=== PATIENT | female | born 1995 | race Caucasian/White ===

== ENCOUNTER 2023-11-23 19:22 | Emergency (ER) | payer OTHER ==
[~2023-11-23] VITALS: Ht 160 cm; Wt 54.4 kg
[2023-11-23 19:29] VITALS: BP_SYST 137; PULSE 77; RESP 18; TEMP 99.1; O2SAT 100
[2023-11-23 19:58] LABS: BILIRUBIN,URINE NEGATIVE (NEGATIVE); BLOOD, URINE NEGATIVE (NEGATIVE); CLARITY/URINE SL CLOUDY (CLEAR); COLOR,URINE YELLOW (YELLOW); GLUCOSE,URINE NEGATIVE (NEGATIVE); KETONES,URINE NEGATIVE (NEGATIVE); LEUKOCYTE ESTERASE ,URINE NEGATIVE (NEGATIVE); NITRITE, URINE NEGATIVE (NEGATIVE); PROTEIN URINE NEGATIVE (NEGATIVE); UROBILINOGEN,URINE 0.2 (0.2-1.0)
[2023-11-23 20:00] LABS: BASOPHILS # (AUTO) 0.1 K/uL (0.0-0.2); BASOPHILS % (AUTO) 0.8 % (0.0-2.0); EOSINOPHILS # (AUTO) 0.3 K/uL (0.0-0.4); EOSINOPHILS % (AUTO) 5.1 % (0.0-4.0); HEMATOCRIT 40.7 % (36-48); HEMOGLOBIN 14.1 g/dL (12.0-16.0); LYMPHOCYTES # (AUTO) 2.1 K/uL (1.0-5.5); LYMPHOCYTES % (AUTO) 30.2 % (20.5-51.5); MEAN CORPUSCULAR HEMOGLOBIN 32 pg (27-31); MEAN CORPUSCULAR HGB CONC 35 % (32-36); MEAN CORPUSCULAR VOLUME 94 fL (79.0-98.0); MONOCYTES # (AUTO) 0.6 K/uL (0.0-1.0); MONOCYTES % (AUTO) 9.2 % (1.7-9.3); NEUTROPHILS # (AUTO) 3.7 K/uL (1.8-7.7); NEUTROPHILS % (AUTO) 54.7 % (40.0-70.0); PLATELET COUNT (AUTO) 273 K/uL (130-430); RED BLOOD CELL COUNT(AUTO) 4.34 MIL/uL (4.2-6.2); RED CELL DISTRIBUTION WIDTH 12.5 % (9.0-15.0); WHITE BLOOD COUNT (AUTO) 6.8 K/uL (4.8-10.8)
[2023-11-23 20:11] LABS: BACTERIA,URINE FEW /HPF (None Seen); MUCUS,URINE None Seen /LPF (None Seen); RBC,URINE NONE SEEN /HPF (0-3); URINE AMORPHOUS PHOSPHATES 3+ /HPF (None Seen); WBC,URINE NONE SEEN /HPF (0-3)
[2023-11-23 20:12] LABS: CALCIUM 8.3 mg/dL (8.4-11.0); CREATININE 0.91 mg/dL (0.55-1.30); POTASSIUM 4.6 mmol/L (3.5-5.1)
[2023-11-23 20:15] VITALS: TEMP 98.4
[2023-11-23] MEDS ORDERED: METR-154 PO (22:42)
[2023-11-23 22:45] VITALS: O2SAT 98
[2023-11-23 22:48] VITALS: BP_SYST 125; PULSE 74; RESP 20
== END 2023-11-23 22:48 | disposition home or self-care (01) ==
LOC: SED 19:22
DX: K52.9 Noninfective gastroenteritis and colitis, unspecified (principal); R10.31 Right lower quadrant pain; Z98.890 Other specified postprocedural states
CPT/HCPCS: 36415; 80048; 81000; 81001; 81015; 81025; 85025; 99284